=== PATIENT | male | born 1980 | race Hispanic/Latino ===

== ENCOUNTER 2022-04-01 07:16 | Emergency (ER) | payer OTHER, BC ==
[~2022-04-01] VITALS: Ht 180.3 cm; Wt 88.5 kg
== END 2022-04-01 08:09 | disposition home or self-care (01) ==
LOC: ED 07:16
DX: S61.213A Laceration without foreign body of left middle finger without damage to nail, initial encounter (principal); Z23 Encounter for immunization; W26.0XXA Contact with knife, initial encounter; Y99.0 Civilian activity done for income or pay
CPT/HCPCS: 90471; 90715; 99282-25